=== PATIENT | female | born 1975 | race Caucasian/White ===

== ENCOUNTER 2016-11-23 07:35 | Emergency (ER) | payer OTHER ==
[~2016-11-23] VITALS: Ht 154.9 cm; Wt 100.6 kg
[2016-11-23 07:42] VITALS: BP 124/94; PULSE 84; RESP 16; TEMP 98.1; O2SAT 96
[2016-11-23] MEDS ORDERED: MELO-1 PO (07:54)
[2016-11-23] MEDS ORDERED: HYDR12.56 PO (07:54)
[2016-11-23] MEDS ORDERED: OMEP20TA PO (07:54)
[2016-11-23] MEDS ORDERED: LEVO125T4 PO (07:54)
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
[2016-11-23 08:11] LABS: AUTOMATED NEUTROPHIL # 6.1 TH/MM3 (1.8-7.7); BASOPHIL # 0.1 TH/MM3 (0-0.2); BASOPHIL % 0.6 % (0.0-2.0); EOSINOPHIL # 0.3 TH/MM3 (0-0.4); HEMATOCRIT 39.4 % (35.0-46.0); HEMO FLAGS DIFF FINAL; LYMPH % 20.9 % (9.0-44.0); LYMPHOCYTE # 1.8 TH/MM3 (1.0-4.8); MEAN CELL VOLUME 89.5 FL (80.0-100.0); MEAN CORPUSCULAR HEMOGLOBIN 30.5 PG (27.0-34.0); MONO % 3.6 % (0.0-8.0); NEUT % 70.9 % (16.0-70.0); PLATELET COUNT 341 TH/MM3 (150-450); RED CELL DISTRIBUTION WIDTH 12.3 % (11.6-17.2); WHITE BLOOD COUNT 8.6 TH/MM3 (4.0-11.0)
[2016-11-23 08:23] LABS: BICARBONATE 26.4 MEQ/L (21.0-32.0)
[2016-11-23] MEDS ORDERED: IBUP-232 PO (09:08)
--- NOTE | 2016-11-23 10:04 | RADHPO ---
EXAM DATE/TIME: 11/23/2016 08:09 [facility] COMPARISON: No previous studies available for comparison. INDICATIONS : Right lateral knee pain post fall. MEDICAL HISTORY : Hypertension. Gastroesophageal reflux disease. Arthritis. SURGICAL HISTORY : Right tibial plates. ENCOUNTER: Initial ACUITY: 2 days PAIN SCORE: 8/10 LOCATION: Right lateral knee FINDINGS: A standard 4 view examination of the right knee was obtained and demonstrates extensive postsurgical changes status post open ridgid internal fixation with multiple screw plate fixation devices transfix ing an old proximal tibial fracture. There are degenerative changes in the medial and lateral compart ment joint space loss, sclerosis and mild spurring. There are mild degenerative changes in the patell ofemoral joint. There is no evidence of acute fracture or malalignment. There is mild fullness in the suprapatella bursa region. There is apparent chondrocalcinosis in the lateral compartment. CONCLUSION: 1. Moderate osteoarthritic change greatest in the medial compartment. 2. Remote postsurgical changes status post open ridgid internal fixation of a proximal tibial fractur e. 3. Small joint effusion. Terrance Eldridge MD on November 23, 2016 at 9:54 Board Certified Radiologist. This report was verified electronically.
--- NOTE | 2016-11-27 08:16 | EKG ---
Date Performed: 11/23/2016 Time Performed: 08:06:42 PTAGE: 41 years EKG: Sinus rhythm Septal T wave changes are nonspecific Borderline ECG NO PREVIOUS TRACING DOCTOR: Wilmer Pritchett Interpretating Date/Time 11/27/2016 08:14:22
== END 2016-11-23 09:15 | disposition home or self-care (01) ==
LOC: PHED 07:35
DX: M23.91 Unspecified internal derangement of right knee (principal); R55 Syncope and collapse; R94.31 Abnormal electrocardiogram [ECG] [EKG]; I10 Essential (primary) hypertension; F17.210 Nicotine dependence, cigarettes, uncomplicated; W01.0XXA Fall on same level from slipping, tripping and stumbling without subsequent striking against object, initial encounter; Y93.01 Activity, walking, marching and hiking; Y92.009 Unspecified place in unspecified non-institutional (private) residence as the place of occurrence of the external cause
CPT/HCPCS: 73564; 80048; 85025; 93005; 99284; E0113; L1830